=== PATIENT | female | born 1990 | race Caucasian/White ===

== ENCOUNTER 2023-07-27 22:55 | Emergency (ER) | payer OTHER, BC ==
[~2023-07-27] VITALS: Ht 157.5 cm; Wt 61.2 kg
[2023-07-27 23:13] VITALS: BP 129/99
[2023-07-30 09:29] LABS: HIV 1,2 COMBO ANTIGEN/ANTIBODY Negative (Negative)
[2023-07-30 12:18] LABS: HEPATITIS B SURFACE ANTIBODY 107.75 IU/L
[2023-07-30 14:43] LABS: HCV QNT BY NAAT (IU/ML) Not Detected; HCV QNT BY NAAT (LOG IU/ML) Not Detected; HCV QNT BY NAAT INTERP Not Detected (Not Detected)
== END 2023-07-28 03:00 | disposition home or self-care (01) ==
LOC: ER 22:55
PROVIDERS: Emergency Medicine
DX: Z20.6 Contact with and (suspected) exposure to human immunodeficiency virus [HIV] (principal); S61.012A Laceration without foreign body of left thumb without damage to nail, initial encounter; W26.0XXA Contact with knife, initial encounter; Y92.238 Other place in hospital as the place of occurrence of the external cause; Y99.0 Civilian activity done for income or pay; Z88.5 Allergy status to narcotic agent
CPT/HCPCS: 36415; 84460; 84703; 87389; 87522; 99283